=== PATIENT | male | born 1955 | race Caucasian/White ===

== ENCOUNTER 2018-09-22 09:36 | Emergency (ER) | payer OTHER ==
[2018-09-22] MEDS ORDERED: Ondansetron INJ* 2 MG/ML VIAL IV ONE (10:10)
[2018-09-22] MEDS ORDERED: Morphine 4 MG/ML VIAL (1 ml) 4 MG/ML VIAL IV ONE (10:10)
[2018-09-22] MEDS ORDERED: NS 0.9% 1000 ML** 1,000 ML IV ONE (10:10)
--- NOTE | 2018-09-22 10:21 | ED ---
Abdominal Pain/Male - HPI Summary HPI Summary: Patient is 63-year-old male with a history of kidney stones presenting to the ED with right-sided groin pain radiating to the right flank. He states this is acute onset this morning at around 6:30 AM. He denies any urinary symptoms including gross hematuria. He has been seen by his primary and recently had an ultrasound of the kidneys performed yesterday. She states there was no sign of a kidney stone yesterday, however he has had this in the past and this feels similar. 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 He is taken ibuprofen with minimal relief. He denies any nausea at this time. He denies any chest pain or SOB. Denies any fevers, sweats, chills. - History of Current Complaint Chief Complaint: EDSobia Stated Complaint: THINKS HE HAS KIDNEY STONE AND CANT PASS IT PER PT Time Seen by Provider: 09/22/18 10:03 Hx Obtained From: Patient Onset/Duration: Sudden Onset Timing: Constant Severity Initially: Moderate Severity Currently: Moderate Pain Intensity: 7 Pain Scale Used: 0-10 Numeric Location: Groin, Flank Radiates: Yes Radiates to: Flank Character: Cramping Aggravating Factor(s): Nothing Alleviating Factor(s): Nothing Associated Signs And Symptoms: Positive: Vomiting. Negative: Urinary Symptoms, Decreased Appetite - Allergies/Home Medications Allergies/Adverse Reactions: Allergies Allergy/AdvReac Type Severity Reaction Status Date / Time No Known Allergies Allergy Verified 09/22/18 09:45 PMH/Surg Hx/FS Hx/Imm Hx Previously Healthy: Yes - Immunization History Hx Pertussis Vaccination: No Immunizations Up to Date: Yes Infectious Disease History: No Infectious Disease History: Denies: Traveled Outside the [place] in Last 30 Days - Social History Occupation: Employed Full-time Lives: With Family Alcohol Use: None Hx Substance Use: No Substance Use Type: Reports: None Hx Tobacco Use: No Smoking Status (MU): Unknown if Ever Smoked Review of Systems Constitutional: Negative Negative: Fever, Chills, Fatigue, Skin Diaphoresis Negative: Palpitations, Chest Pain Negative: Shortness Of Breath, Cough Positive: Abdominal Pain, Vomiting, Nausea. Negative: Diarrhea Genitourinary: Negative Positive: no symptoms reported, see HPI Negative: Arthralgia, Myalgia Negative: Rash, Bruising Neurological: Negative All Other Systems Reviewed And Are Negative: Yes Physical Exam Triage Information Reviewed: Yes Vital Signs On Initial Exam: Initial Vitals Temp Pulse Resp BP Pulse Ox 98.2 F 71 18 188/97 96 09/22/18 09:41 09/22/18 09:41 09/22/18 09:41 09/22/18 09:41 09/22/18 09:41 Vital Signs Reviewed: Yes Appearance: Positive: Well-Appearing, Well-Nourished Skin: Positive: Warm, Skin Color Reflects Adequate Perfusion Head/Face: Positive: Normal Head/Face Inspection Eyes: Positive: EOMI, CHAZ, Conjunctiva Clear Neck: Positive: Supple Respiratory/Lung Sounds: Positive: Clear to Auscultation, Breath Sounds Present Cardiovascular: Positive: RRR, Pulses are Symmetrical in both Upper and Lower Extremities Musculoskeletal: Positive: Pain @ - right flank and R groin Neurological: Positive: Sensory/Motor Intact, Alert, Oriented to Person Place, Time, Speech Normal Psychiatric: Positive: Affect/Mood Appropriate AVPU Assessment: Alert Diagnostics - Vital Signs Vital Signs Temp Pulse Resp BP Pulse Ox 09/22/18 09:41 98.2 F 71 18 188/97 96 - Laboratory Result Diagrams: 09/22/18 10:18 09/22/18 10:18 Lab Statement: Any lab studies that have been ordered have been reviewed, and results considered in the medical decision making process. Abdominal Pain Male Course/Dx - Course Course Of Treatment: During this course of treatment, the patient's evaluated for right flank and right groin pain. Labs obtained he is given 1 L fluids, morphine and Zofran. CT abdomen and pelvis obtained which shows a 5 mm calculus at the right UVJ causing moderate to severe hydronephrosis. Discussed with Dr. Chandler who agrees patient should follow up in his office and is OK for discharge home with pain control. US obtained which shows only 1+ WBC and 3 + RBC's without leuks. He is not placed on abx at this time. Patient denies UTI sxs. - Diagnoses Differential Diagnosis/HQI/PQRI: Renal Colic, Ureteral Stone, Urinary Tract Infection Provider Diagnoses: Kidney stone Discharge - Sign-Out/Discharge Documenting (check all that apply): Patient Departure Patient Received Moderate/Deep Sedation with Procedure: No - Discharge Plan Condition: Stable Disposition: HOME Prescriptions: Hydrocodone/Acetamin 10/325(NF [[place] 10/325 (NF)] 1 tab PO Q8H #9 tab MDD 3 Patient Education Materials: Kidney Stones (ED) Referrals: Ruben Edgar MD [Primary Care Provider] - Boone Chandler MD [Medical Doctor] - Additional Instructions: Pain medication as needed Hydrocodone up to every 8 hours as needed for pain Drink plenty of fluids Follow-up with Dr. Chandler's office - Billing Disposition and Condition Condition: STABLE Disposition: Home
[2018-09-22 10:25] LABS: ABS Basophils 0 10^3/ul (0-0.2); ABS Eosinophils 0.3 10^3/ul (0-0.6); ABS Lymphocytes 1.4 10^3/ul (1.0-4.8); ABS Monocytes 0.4 10^3/ul (0-0.8); ABS Neutrophils 8.2 10^3/ul (1.5-7.7); ABS Nucleated RBC 0 10^3/ul; Eosinophil % 2.6 %; Hematocrit 39 % (42-52); Hemoglobin 13.1 g/dl (14.0-18.0); Lymphocyte % 13.9 %; Mean Corpuscular HGB Conc 34 g/dl (31-36); Mean Corpuscular Hemoglobin 27 pg (27-31); Mean Corpuscular Volume 81 fL (80-94); Mean Platelet Volume 7.1 fL (7.4-10.4); Nucleated Red Blood Cells % 0; Platelet Count 200 10^3/ul (150-450); Red Blood Count 4.79 10^6/ul (4.00-5.40); Red Cell Distribution Width 14 % (10.5-15); White Blood Count 10.3 10^3/ul (3.5-10.8)
[2018-09-22 10:43] LABS: Albumin/Globulin Ratio 1.7 (1-3); BUN/Creatinine Ratio 14.6 (8-20); C Reactive Protein 3.67 mg/L (<8.01); Calcium 8.4 mg/dL (8.6-10.3); EGFR African American 96.4 (>60); EGFR Non-African American 79.6 (>60); Globulin 2.4 g/dL (2-4); Magnesium 1.5 mg/dL (1.9-2.7); Potassium 3.8 mmol/L (3.5-5.0); Total Bilirubin 0.5 mg/dL (0.2-1.0); Total Protein 6.4 g/dL (6.4-8.9)
[2018-09-22 12:31] VITALS: BP 151/74
[2018-09-22 12:45] LABS: Urine Appearance Cloudy; Urine Bacteria Absent (Absent); Urine Bilirubin Negative (Negative); Urine Blood 3+ (Negative); Urine Color Yellow; Urine Glucose 2+(150 mg/dL) (Negative); Urine Ketones Negative (Negative); Urine Nitrite Negative (Negative); Urine Protein 1+(30 mg/dL) (Negative); Urine Red Blood Cell 3+(>10/hpf) (Absent); Urine Specific Gravity 1.018 (1.010-1.030); Urine Urobilinogen Negative (Negative); Urine White Blood Cell 1+(6-10/hpf) (Absent)
== END 2018-09-22 12:39 | disposition home or self-care (01) ==
LOC: ED 09:36
DX: N13.2 Hydronephrosis with renal and ureteral calculous obstruction (principal); K76.0 Fatty (change of) liver, not elsewhere classified; R16.1 Splenomegaly, not elsewhere classified; N40.0 Benign prostatic hyperplasia without lower urinary tract symptoms; R11.2 Nausea with vomiting, unspecified
CPT/HCPCS: 36415; 74176; 80053; 81003; 81015; 83605; 83690; 83735; 85025; 86140; 87086; 96374; 96375; 99283; J2270; J2405

== ENCOUNTER → 2019-04-09 10:53 | Day surgery (SDC) | payer OTHER ==
[~2019-04-09 10:53] MED LIST: Acetaminophen IV 1GM/100ML * 100 ML ONE; Buffered Lidocaine 1% SYRIN* 1 ML/SYRINGE INTRADERM ONE; Bupivacaine 0.25% EPI 200,000* 30 ML SDV ONE; Dexamethasone IV* 4 MG/ML 1 ML (4 MG) IV SLOW PU ONE; Dexamethasone IV* 4 MG/ML 1 ML (4 MG) ONE; DiMENhydriNATE IV* 50 MG/ML VIAL IV PUSH PRN; EPINEPHRINE 1 MG/ML 1 ML VIAL ONE; Famotidine IV* 10 MG/ML 2 ML (20 mg) IV ONE; Famotidine IV* 10 MG/ML 2 ML (20 mg) ONE; HYDROmorphone INJ1* 1 MG/ML SYRINGE IV PRN; KETAMINE HCL* 50 MG/ML 10 ML VIAL ONE; Ketorolac INJ* 30 MG/ML 1 ML VIAL ONE; Labetalol IV* 5 MG/ML 20 ML VIAL ONE; Lactated Ringers 1000 ML Bag* 1,000 ML IV SCH; Midazolam* 1 MG/ML 5 ML VIAL (5 MG) ONE; Naloxone* 0.4 MG/ML 1 ML VIAL IV PRN; PROCHLORPERAZINE INJ 5 MG/ML 2 ML VIAL IV PRN; ceFAZolin 1 GM ADVAN(*) 1 GM ADDV.VIAL IVPB ONE; ceFAZolin 2 GM in NS PREMIX(*) 2 GM/100 ML BAG IVPB ONE; fentaNYL* 50 MCG/ML 2 ML VIAL (100 MCG VIAL) ONE; oxyCODONE TAB* 5 MG TAB ONE; oxyCODONE TAB* 5 MG TAB PO PRN
[2019-04-09] MEDS: fentaNYL* 50 MCG/ML 2 ML VIAL (100 MCG VIAL) IV PRN ×2 (18:10→18:32)
[2019-04-09 19:30] VITALS: BP 170/79
--- NOTE | 2019-04-12 00:12 | OP ---
DATE OF OPERATION: 04/09/19 - [facility] DATE OF : 59 SURGEON: Tor Harris MD ASSISTANTS: FOUZIA Guerrier. A physician middle school assistant principal was required for the length of procedure for patient positioning, the patient's knee manipulation and closure. ANESTHESIOLOGIST: Dr. Ronnie Acharya. ANESTHESIA: Spinal anesthesia, local anesthesia. PRE-OP DIAGNOSES: 1. Right knee pain. 2. Right knee medial meniscus tear, possibly with a displaced flap fragment. 3. Right knee mild osteoarthritis. POST-OP DIAGNOSES: 1. Right knee pain. 2. Right knee medial meniscus tear with flaps, slightly displaced. 3. Right knee osteoarthritis. OPERATIVE PROCEDURE: Right knee arthroscopic partial medial meniscectomy. ANTIBIOTICS: Ancef 3 g IV. IV FLUIDS: See anesthesia note. [id number] TIME: 32 minutes. TOURNIQUET TIME: Less than 32 minutes of tourniquet, right thigh at 300 mmHg. SPECIMEN: None. IMPLANTS: None. ESTIMATED BLOOD LOSS: Minimal. COMPLICATIONS: None. 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 He responded insufficiently to a non- operative management and opted for surgery. The patient besides having chronic lower level pain, would have intermittent jolts, stabs of sharp pain in the right knee. This hurt with him with walking but also with sleeping, preventing sleep. The patient had some subtle findings on MRI showing possibly a flap displaced just superior to the body of the medial meniscus. The patient eventually decided on surgery. I explained to the patient that given his level of articular cartilage loss in the knee, early arthritis, and there was strictly no guarantee regarding recovery with surgery, but given the presence of a displaced flap, I was hoping for improvement. The patient is notable for having a BMI of 44.9 with a weight of 350 pounds. Discussed risks and potential complication with the patient. DESCRIPTION OF PROCEDURE: In preoperative holding, the patient signed a written consent. Operative extremity was marked in preop holding. The patient was taken back to the operating room table and placed supine on the operating room table. The patient received spinal anesthesia in the operating room by Dr. Acharya. The patient was laid supine on the operating room table. Tourniquet was placed about the right proximal thigh. Circumferential thigh sykes was placed about the distal thigh. The table was elevated and the foot of the table was dropped. The right lower extremity was prepped and draped. Surgical time-out was performed. Esmarch was applied and the tourniquet was elevated to 300 mmHg. I established an anterolateral knee arthroscopy portal using standard technique. The patient had no significant articular cartilage loss in that patellofemoral compartment. I moved down to the anteromedial aspect of the knee. Visualized the medial compartment. The patient had some loss of articular cartilage on the femoral and tibial sides and a clear tear in the body of the medial meniscus. The patient's visibility was not particularly good during this operation such that I even dropped the tourniquet during the procedure to see if that would improve the visibility. I was also dealing with alternate scope equipment. There was also some sort of printing issue so that none of the pictures that I took during the procedure were available to me at the end of the procedure. I established an anteromedial knee arthroscopy portal under direct visualization. Working through the medial protal and then working through the lateral portal, I debrided the medial meniscus tear back to a stable rim of tissue. I should state that initially there was a small flap that entered displaced centrally into the medial compartment, did not visualize any flap that displaced superiorly. The patient had a complex tear, 1 component of which was radial that was long, not quite full width of the body of the medial meniscus, but it was high- grade partial width with a flap anterior and posterior to it, with some mobility to those flaps. I debrided that tissue back to stability. I worked from both portals and probed the final product to confirm its stability. I debrided some anterior synovitic tissue and ligamentum mucosum during the procedure. I noted intact ACL and I noted that the lateral compartment had no meniscus tear nor any articular cartilage damage whatsoever. I removed instruments and fluids from the knee. I closed skin incisions with [id number] and 12 stitches using nylon 3-0 suture. As his spinal anesthesia appeared wearing off, I placed local anesthesia, approximately 30 cc of Marcaine 0.25% with epinephrine about the skin incisions. Dressing consisted of Xeroform, 4x4s, ABD pads, sterile Webril, Zion bandage from foot to proximal groin. The patient was lightened of sedation and transferred to the PACU. DISPOSITION: The patient was given wound care instructions. He will take aspirin b.i.d. x2 weeks for DVT prophylaxis and Percocet as needed for pain control. He will start physical therapy immediately. I encouraged him to use the crutches for at least 4 days given how large of a man he is to minimize the risk of postoperative bony contusions. I will see him in 10 to 14 days postoperatively. As I stated in the body of this note, photographs were unavailable to me during the operation, but I will attempt to tract this down if some are saved in the software system. The patient was awake and I interacted with him during the procedure and he was actually able to visualize the monitor, but I suspect he would not remember that. [id number]/[facility] #: [id number] REINA
== END | disposition home or self-care (01) ==
LOC: OR 10:53
PROVIDERS: ATTEND Orthopaedic Surgery
DX: S83.241A Other tear of medial meniscus, current injury, right knee, initial encounter (principal); M17.11 Unilateral primary osteoarthritis, right knee; Z87.891 Personal history of nicotine dependence; E11.9 Type 2 diabetes mellitus without complications; Z79.84 Long term (current) use of oral hypoglycemic drugs; I10 Essential (primary) hypertension; E66.9 Obesity, unspecified; Z68.41 Body mass index [BMI] 40.0-44.9, adult; X58.XXXA Exposure to other specified factors, initial encounter; Y92.9 Unspecified place or not applicable
CPT/HCPCS: A9270-GY; J0690; J1100; J1885; J2250; J3010